=== PATIENT | female | born 1950 | race Two or more races ===

== ENCOUNTER 2018-11-08 19:38 | Emergency (ER) | payer MEDICARE, BC ==
[~2018-11-08] VITALS: Ht 167.6 cm; Wt 73.0 kg
[~2018-11-08 19:38] MED LIST: ASPI81CH; CALMAGZIN; Crutch1 EACH MISC; DIPH50; ERGO50000; FISH1000; HAWTHORN150 MG; IBUP600; Percocet 5-3251 EACH PO; Zofran Odt8 MG SL
[2018-11-08] MEDS ORDERED: Norco 7.5-3251 EACH PO (21:34)
[2018-11-08] MEDS ORDERED: ONDA4ODT MM (21:43)
== END 2018-11-08 22:00 | disposition home or self-care (01) ==
LOC: ER 19:38
DX: M25.562 Pain in left knee (principal); Z88.5 Allergy status to narcotic agent; Z88.8 Allergy status to other drugs, medicaments and biological substances; Z79.899 Other long term (current) drug therapy; Z79.82 Long term (current) use of aspirin; E78.5 Hyperlipidemia, unspecified
CPT/HCPCS: 29505; 73562-LT; 99283-25; A9270-GY

== ENCOUNTER 2018-11-14 06:20 | Day surgery (SDC) | payer MEDICARE, BC ==
[~2018-11-14] VITALS: Ht 167.6 cm; Wt 70.6 kg
[~2018-11-14 06:20] MED LIST changes: +Norco 7.5-3251 EACH PO; +ONDA4ODT MM
== END 2018-11-14 11:40 | disposition home or self-care (01) ==
LOC: ORSCSDS 06:20
PROVIDERS: Orthopaedic Surgery
PROC: 0QSH44Z Reposition Left Tibia with Internal Fixation Device, Percutaneous Endoscopic Approach (ICD-10-PCS; principal; 2018-11-14 07:30)
PROC: 0SBD4ZZ Excision of Left Knee Joint, Percutaneous Endoscopic Approach (ICD-10-PCS; principal; 2018-11-14 07:30)
DX: S82.142A Displaced bicondylar fracture of left tibia, initial encounter for closed fracture (principal); S83.282A Other tear of lateral meniscus, current injury, left knee, initial encounter; W17.2XXA Fall into hole, initial encounter
CPT/HCPCS: A9270-GY; C1713; C1769; J0171; J0690; J1100; J1885; J2250; J2370; J2405; J2704; J3010; J7120

== ENCOUNTER → 2023-10-19 | Outpatient (CLI) | payer MEDICARE, BC | END | disposition home or self-care (01) | LOC: LAB 11:26 → LAB SHORT 11:26 | DX: N39.0 Urinary tract infection, site not specified (principal) | CPT/HCPCS: 87086 ==

== ENCOUNTER → 2023-11-04 | Outpatient (CLI) | payer MEDICARE, BC ==
[2023-11-04 17:25] LABS: Source, Urine Voided
[2023-11-04 17:37] LABS: Appearance, Urine Clear (Clear); Bilirubin, Urine Neg (Neg); Blood, Urine Neg (Neg); Glucose Qualitative, Urine Neg (Neg); Ketones, Urine Neg (Neg); Leukocyte Esterase, Urine Neg (Neg); Nitrite, Urine Neg (Neg); Protein, Urine Neg (Neg); Specific Gravity, Urine 1.005 (1.003-1.022); Urobilinogen, Urine NORM (Normal)
[2023-11-04 17:52] LABS: Color, Urine Pale Yellow (P-Yellow)
== END ==
LOC: LAB 17:22 → LAB SHORT 17:22
PROVIDERS: Obstetrics & Gynecology
DX: Z87.440 Personal history of urinary (tract) infections (principal)
CPT/HCPCS: 81003

== ENCOUNTER → 2023-12-02 | Outpatient (CLI) | payer MEDICARE, BC | END | disposition home or self-care (01) | LOC: LAB SHORT 15:25 → LAB 15:25 | DX: Z01.89 Encounter for other specified special examinations (principal); Z80.52 Family history of malignant neoplasm of bladder | CPT/HCPCS: 88108 ==